=== PATIENT | male | born 1945 | race Caucasian/White ===

== ENCOUNTER → 2017-01-12 | Outpatient (CLI) | payer OTHER, MEDICARE ==
[~2017-01-12] MED LIST: GADOBUTROL 10 ML VIAL IVP ONE
--- NOTE | 2017-01-12 14:05 | MR ---
MRI of the Brain (Without Contrast) at 0758 hours Clinical Indications: H81.3 - chronic kidney disease, stage 3 (moderate) R56.9 - convulsions. Comparison: None Technique: T1-weighted images were acquired axially and sagittally from the foramen magnum to the ve rtex. Axial fast inversion recovery, fast T2-weighted, and diffusion-weighted axial images were obta ined without contrast. Additional coronal FLAIR series. Findings: The ventricles, cisterns, and sulci are slightly widened, consistent with mild atrophy. 6 x 3 mm old lacunar infarct in the left lentiform nucleus. No hydrocephalus, midline shift, herniation , or epidural/subdural hematomas. No intracranial hemorrhage or masses. Diffusion-weighted sequence d emonstrates no acute infarct. Cerebellar tonsils are in normal position. Pituitary gland is normal in size. Normal signal flow-void in the superior sagittal sinus, basilar artery, and bilateral internal carotid arteries indicating patency. Paranasal sinuses and mastoid air cells are clear. In the left mesial temporal lobe, there is asymmetric loss of volume of the left hippocampus region with associat ed increased signal, coronal FLAIR image #13. Impression: 1. Old subcentimeter lacunar infarct in the left lentiform nucleus. 2. Mild cerebral atrophy. 3. No acute infarct, acute hemorrhage, hydrocephalus or mass effect. 4. 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
== END ==
LOC: FIMAGING 07:32
PROVIDERS: ATTEND Internal Medicine
DX: R56.9 Unspecified convulsions (principal); N18.3 Chronic kidney disease, stage 3 (moderate)
CPT/HCPCS: A9585

== ENCOUNTER → 2017-01-16 | Outpatient (CLI) | payer OTHER, MEDICARE ==
--- NOTE | 2017-01-19 14:40 | CPEEG ---
[f rep st] ELECTROENCEPHALOGRAM 4-HOUR VIDEO EEG DATE OF STUDY: 01/16/2017 DATE OF INTERPRETATION: 01/19/2017 INTERPRETATION: This 4-hour video EEG is abnormal due to the presence of probable left frontotemporal sharp waves. These findings would be consistent with a focal seizure disorder. During the video EEG monitoring session, the patient did not have any clinical events. REPORT: This 4-hour video EEG contains 10 Hz alpha activity over the posterior head regions. The primary feature of this recording was the presence of broad- based, low-amplitude sharp wave discharges over the left frontotemporal head region with maximal amplitudes over electrodes Fp1 and F7. There was no additional activation with photic stimulation or hyperventilation. The patient became drowsy and fell asleep during the study. During drowsiness and sleep, there was increased activation of these left frontotemporal discharges with the discharges having more clearcut disruption of the ongoing background activity. However, they stayed fairly low-amplitude and broad-based throughout the study. There were no events recorded during the video EEG monitoring session. /[id number]/MODL MTDD
== END ==
LOC: FCPNEURO 08:42
PROVIDERS: ATTEND Internal Medicine
DX: R56.9 Unspecified convulsions (principal)

== ENCOUNTER → 2017-11-09 | Outpatient (CLI) | payer OTHER, MEDICARE | LOC: BHCLAF 10:45 | PROVIDERS: ATTEND Internal Medicine Cardiovascular Disease | DX: G45.9 Transient cerebral ischemic attack, unspecified (principal) | CPT/HCPCS: 93880-PO ==

== ENCOUNTER 2017-12-17 13:36 | Day surgery (SDC) | payer OTHER, MEDICARE ==
[2017-12-17] MEDS ORDERED: LIDOCAINE 1% 300 MG/30 ML SDV SC ONE (13:42)
--- NOTE | 2017-12-17 15:05 | PDHPUP ---
History & Physical Update H&P update statement: This history and physical update is based on an assessment of the patient which was completed after admission or registration (within 24 hours), but prior to the surgery/procedure. H&P update: H&P reviewed & patient examined, no change in patient's condition since H&P completed
--- NOTE | 2017-12-17 15:20 | PDDXCAT ---
Diagnostic Cath Note - . Date: 12/17/17 Pusher Operator: Bubba Indication: other (TIA) - Procedure Procedure: other (Implantation of a [employer] LINQ event recorder.) Complications: None Estimated blood loss: <50ml Closure method: other (Skin reinaldo x 2) Assessment: Appropriate position for insertion was confirmed and marked. The anterior chest was then prepped and draped in sterile fashion. Local anesthesia consisted of 1% lidocaine subcutaneously. A 5 mm incision was made in the skin just lateral to the sternum in the fourth intercostal space. The LINQ event recorder was inserted subcutaneously. The incision was closed with two skin reinaldo. Patient Problems: Problems Problem Status Onset CAD (coronary artery disease), [place] coronary artery Acute Exertional angina Acute S/P CABG x 3 Acute Chronic renal disease Chronic Diet-controlled diabetes mellitus Chronic Dyslipidemia Chronic HTN (hypertension) Chronic Hypothyroidism Chronic
== END 2017-12-17 15:30 | disposition home or self-care (01) ==
LOC: FCATH 13:36
PROVIDERS: ATTEND Internal Medicine Interventional Cardiology
PROC: 0JH602Z Insertion of Monitoring Device into Chest Subcutaneous Tissue and Fascia, Open Approach (ICD-10-PCS; principal; 2017-12-17)
DX: G45.9 Transient cerebral ischemic attack, unspecified (principal); I12.9 Hypertensive chronic kidney disease with stage 1 through stage 4 chronic kidney disease, or unspecified chronic kidney disease; E78.5 Hyperlipidemia, unspecified; I25.10 Atherosclerotic heart disease of native coronary artery without angina pectoris; E11.22 Type 2 diabetes mellitus with diabetic chronic kidney disease; N18.3 Chronic kidney disease, stage 3 (moderate); Z95.1 Presence of aortocoronary bypass graft
CPT/HCPCS: C1764